=== PATIENT | male | born 1950 | race Caucasian/White ===

== ENCOUNTER → 2017-12-07 | Outpatient (CLI) | payer MEDICARE ==
[~2017-12-07] MED LIST: ASPI1CHW4 CHEW; PARO10TA; SIMV40 PO
[2017-12-07 16:04] LABS: AUTOMATED NEUTROPHIL # 3.5 TH/MM3 (1.8-7.7); BASOPHIL % 0.8 % (0.0-2.0); EOSINOPHIL # 0.1 TH/MM3 (0-0.4); EOSINOPHIL % 2.1 % (0.0-4.0); HEMATOCRIT 34.4 % (39.0-51.0); HEMOGLOBIN 11.9 GM/DL (13.0-17.0); LYMPH % 31.6 % (9.0-44.0); MEAN CELL VOLUME 85.4 FL (80.0-100.0); MEAN CORPUSCULAR HEMOGLOBIN 29.5 PG (27.0-34.0); MEAN CORPUSCULAR HGB CONC 34.6 % (32.0-36.0); MEAN PLATELET VOLUME 7.3 FL (7.0-11.0); MONO % 9.4 % (0.0-8.0); MONOCYTE # 0.6 TH/MM3 (0-0.9); NEUT % 56.1 % (16.0-70.0); PLATELET COUNT 286 TH/MM3 (150-450); RED BLOOD COUNT 4.02 MIL/MM3 (4.50-5.90); RED CELL DISTRIBUTION WIDTH 13.5 % (11.6-17.2); WHITE BLOOD COUNT 6.2 TH/MM3 (4.0-11.0)
[2017-12-07 16:27] LABS: ALBUMIN 3.4 GM/DL (3.4-5.0); AST (GOT) 24 U/L (15-37); BICARBONATE 25.7 MEQ/L (21.0-32.0); BLOOD UREA NITROGEN 16 MG/DL (7-18); CALCIUM 8.2 MG/DL (8.5-10.1); CHLORIDE 106 MEQ/L (98-107); CHOLESTEROL 191 MG/DL (120-200); CREATININE 0.71 MG/DL (0.60-1.30); GLOMERULAR FILTRATION RATE 110 ML/MIN (>89); GLUCOSE,FASTING 80 MG/DL (74-99); SODIUM (NA) 140 MEQ/L (136-145)
[2017-12-07 16:28] LABS: ALKALINE PHOSPHATASE 87 U/L (45-117); ALT (GPT) 23 U/L (12-78); CHOLESTEROL/ HDL RATIO 3.76 RATIO; HDL CHOLESTEROL 50.7 MG/DL (40.0-60.0); LDL CHOLESTEROL 105 MG/DL (0-99); TOTAL BILIRUBIN ADULT 0.9 MG/DL (0.2-1.0); TOTAL PROTEIN 7.9 GM/DL (6.4-8.2); TRIGLYCERIDES 178 MG/DL (42-150)
== END ==
LOC: PLAB 11:51
PROVIDERS: ATTEND Family Medicine
DX: E78.5 Hyperlipidemia, unspecified (principal); Z13.29 Encounter for screening for other suspected endocrine disorder
CPT/HCPCS: 36415; 80053; 80061; 84443; 85025

== ENCOUNTER 2018-01-30 10:39 | Emergency (ER) | payer MEDICARE ==
[~2018-01-30] VITALS: Ht 175.3 cm; Wt 104.0 kg
[2018-01-30 10:41] VITALS: BP 140/76; PULSE 74; RESP 18; TEMP 99.4; O2SAT 99
--- NOTE | 2018-01-30 11:07 | PD ---
HPI Chief Complaint: General Weakness Time Seen by Provider: 10:50 Travel History International Travel<30 days: No Contact w/Intl Traveler<30days: No Traveled to known affect area: No History of Present Illness HPI This 67-year-old male is complaining of generalized weakness and fatigue. Says he has had these symptoms for about a month. He gets short of breath with minimal exertion. He gets exhausted very easily. He has a history of hepatitis B and says that he felt like this at that time. He has had 2 angioplasties in the past. He has not had any recent chest pain. 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 He is on a statin. He has not been having any pain. He has some indigestion and his primary care doctor is trying to get him to see a GI doctor PFS Past Medical History Hx Anticoagulant Therapy: Yes (ASA) Arthritis: No Asthma: No Anxiety: Yes Heart Rhythm Problems: Yes Cardiac Catheterization: Yes (STENTS X2) Cardiovascular Problems: Yes (CAD, STENT) High Cholesterol: Yes Chest Pain: Yes Congestive Heart Failure: No COPD: No Cerebrovascular Accident: No Coronary Artery Disease: Yes Diminished Hearing: No Gastrointestinal Disorders: Yes GERD: Yes Genitourinary: No Headaches: No Hepatitis: Yes (B) Hiatal Hernia: No Hypertension: Yes Kidney Stones: No Musculoskeletal: Yes Neurologic: Yes Reproductive: No Respiratory: Yes Migraines: No Myocardial Infarction: No Renal Failure: No Seizures: No Sleep Apnea: No Ulcer: No Past Surgical History Abdominal Surgery: No Appendectomy: No Cardiac Surgery: Yes (ANGIOPLASTY X TWO) Cholecystectomy: No Ear Surgery: No Endocrine Surgery: No Eye Surgery: No Genitourinary Surgery: No Gynecologic Surgery: No Oral Surgery: No Thoracic Surgery: No Other Surgery: Yes Social History Alcohol Use: No Tobacco Use: No Substance Use: No Allergies-Medications (Allergen,Severity, Reaction): Coded Allergies: No Known Allergies (Verified Adverse Reaction, Unknown, 01/30/18) Reported Meds & Prescriptions Reported Meds & Active Scripts Active Reported Aspirin 81 Mg Chew 162 Mg CHEW DAILY Simvastatin 20 Mg Tab 20 Mg PO HS Paxil (Paroxetine HCl) 10 Mg Tab 20 Mg PO HS Review of Systems General / Constitutional: No: Fever, Chills Eyes: No: Diploplia, Blurred Vision HENT: No: Headaches, Vertigo Cardiovascular: No: Chest Pain or Discomfort, Palpitations Respiratory: Positive: Shortness of Breath, No: Cough Gastrointestinal: No: Nausea, Vomiting Genitourinary: No: Urgency, Frequency Musculoskeletal: No: Myalgias Skin: No Rash, No Itching Endocrine: No: Heat Intolerance Hematologic/Lymphatic: No: Easy Bruising Physical Exam Narrative GENERAL: Well-developed male SKIN: Focused skin assessment warm/dry. HEAD: Atraumatic. Normocephalic. EYES: Pupils equal and round. No scleral icterus. No injection or drainage. ENT: No nasal bleeding or discharge. Mucous membranes pink and moist. NECK: Trachea midline. No JVD. CARDIOVASCULAR: Regular rate and rhythm. No murmur appreciated. RESPIRATORY: No accessory muscle use. Clear to auscultation. Breath sounds equal bilaterally. GASTROINTESTINAL: Abdomen soft, non-tender, nondistended. Hepatic and splenic margins not palpable. On rectal exam there are no masses. Stool is brown but guaiac positive MUSCULOSKELETAL: No obvious deformities. No clubbing. No cyanosis. No edema. NEUROLOGICAL: Awake and alert. No obvious cranial nerve deficits. Motor grossly within normal limits. Normal speech. PSYCHIATRIC: Appropriate mood and affect; insight and judgment normal. Data Data Last Documented VS Vital Signs Date Time Temp Pulse Resp B/P (MAP) Pulse Ox O2 Delivery O2 Flow Rate FiO2 01/30/18 12:00 60 16 145/73 (97) 97 Room Air 01/30/18 10:41 99.4 Orders Orders Electrocardiogram (01/30/18 11:03) Complete Blood Count With Diff (01/30/18 11:03) Comprehensive Metabolic Panel (01/30/18 11:03) Creatine Kinase (Cpk) (01/30/18 11:03) Troponin I (01/30/18 11:03) B-Type Natriuretic Peptide (01/30/18 11:03) Magnesium (Mg) (01/30/18 11:03) Thyroid Stimulating Hormone (01/30/18 11:03) Chest, Single Ap (01/30/18 11:03) Labs Laboratory Tests Test 01/30/18 11:30 White Blood Count 6.1 TH/MM3 Red Blood Count 3.91 MIL/MM3 Hemoglobin 9.8 GM/DL Hematocrit 30.5 % Mean Corpuscular Volume 78.0 FL Mean Corpuscular Hemoglobin 25.0 PG Mean Corpuscular Hemoglobin Concent 32.0 % Red Cell Distribution Width 13.5 % Platelet Count 343 TH/MM3 Mean Platelet Volume 7.0 FL Neutrophils (%) (Auto) 57.9 % Lymphocytes (%) (Auto) 29.0 % Monocytes (%) (Auto) 11.0 % Eosinophils (%) (Auto) 1.6 % Basophils (%) (Auto) 0.5 % Neutrophils # (Auto) 3.5 TH/MM3 Lymphocytes # (Auto) 1.8 TH/MM3 Monocytes # (Auto) 0.7 TH/MM3 Eosinophils # (Auto) 0.1 TH/MM3 Basophils # (Auto) 0.0 TH/MM3 CBC Comment AUTO DIFF Blood Urea Nitrogen 19 MG/DL Creatinine 0.66 MG/DL Random Glucose 92 MG/DL Total Protein 7.4 GM/DL Albumin 3.3 GM/DL Calcium Level 8.2 MG/DL Magnesium Level 2.1 MG/DL Alkaline Phosphatase 77 U/L Aspartate Amino Transf (AST/SGOT) 12 U/L Alanine Aminotransferase (ALT/SGPT) 15 U/L Total Bilirubin 0.4 MG/DL Sodium Level 138 MEQ/L Potassium Level 3.9 MEQ/L Chloride Level 106 MEQ/L Carbon Dioxide Level 24.9 MEQ/L Anion Gap 7 MEQ/L Estimat Glomerular Filtration Rate 120 ML/MIN Total Creatine Kinase 67 U/L Troponin I LESS THAN 0.02 NG/ML B-Type Natriuretic Peptide 9 PG/ML Thyroid Stimulating Hormone 3rd Gen 1.500 uIU/ML MDM Medical Decision Making Medical Screen Exam Complete: Yes Emergency Medical Condition: Yes Medical Record Reviewed: Yes Differential Diagnosis Differential includes liver disease, anemia Narrative Course Hemoglobin today is 9.8. It was 11.9 a few months ago. I suspect his symptoms may be related to his anemia. He does have hypochromic microcytic indices in the stool was positive for blood. His symptoms have been going on for about a month so this does not appear to be an active bleed but certainly needs evaluation. His primary care doctor has been trying to arrange a appointment with GI and I have stressed the importance of this. I will start him on iron. I have also cautioned him that if his symptoms change she should return for reevaluation Diagnosis Primary Impression: Iron deficiency anemia Scripts Ferrous Sulfate (Ferrous Sulfate) 325 Mg (65 Mg Iron) Tablet 325 MG PO BIDPC for Nutritional Supplement, #60 TAB 0 Refills Prov: Kris Taylor MD 01/30/18 Disposition: 01 DISCHARGE HOME Condition: Stable Kris Taylor MD Jan 30, 2018 11:07
--- NOTE | 2018-01-30 11:30 | RADRPT ---
EXAM DATE/TIME: 01/30/2018 11:17 [facility] COMPARISON: No previous studies available for comparison. INDICATIONS : Short of breath MEDICAL HISTORY : Hypertension. Hepatitis B. Gastroesophageal reflux disease. SURGICAL HISTORY : Cardiac stent, Angioplasty ENCOUNTER: Initial ACUITY: 1 day PAIN SCORE: 2/10 LOCATION: Bilateral chest FINDINGS: The heart is normal in size. The mediastinal contours are within normal limits. There mild chronic ap pearing interstitial changes within the pulmonary parenchyma. There is some opacification of the left lung base. This appears to be overlying soft tissue along the chest wall. The osseous structures are grossly intact. CONCLUSION: 1. COPD changes. No acute cardiopulmonary findings. Derick Galicia MD on January 30, 2018 at 11:27 Board Certified Radiologist. This report was verified electronically.
[2018-01-30 11:52] LABS: AUTOMATED NEUTROPHIL # 3.5 TH/MM3 (1.8-7.7); BASOPHIL % 0.5 % (0.0-2.0); EOSINOPHIL # 0.1 TH/MM3 (0-0.4); EOSINOPHIL % 1.6 % (0.0-4.0); HEMATOCRIT 30.5 % (39.0-51.0); HEMOGLOBIN 9.8 GM/DL (13.0-17.0); LYMPHOCYTE # 1.8 TH/MM3 (1.0-4.8); MONOCYTE # 0.7 TH/MM3 (0-0.9); NEUT % 57.9 % (16.0-70.0); PLATELET COUNT 343 TH/MM3 (150-450); RED BLOOD COUNT 3.91 MIL/MM3 (4.50-5.90); RED CELL DISTRIBUTION WIDTH 13.5 % (11.6-17.2); WHITE BLOOD COUNT 6.1 TH/MM3 (4.0-11.0)
[2018-01-30 12:00] VITALS: BP 145/73; PULSE 60; RESP 16; O2SAT 97
[2018-01-30 12:01] LABS: CHLORIDE 106 MEQ/L (98-107); SODIUM (NA) 138 MEQ/L (136-145)
[2018-01-30 12:04] LABS: CALCIUM 8.2 MG/DL (8.5-10.1)
[2018-01-30 12:05] LABS: ALBUMIN 3.3 GM/DL (3.4-5.0); BICARBONATE 24.9 MEQ/L (21.0-32.0); BLOOD UREA NITROGEN 19 MG/DL (7-18); GLUCOSE,RANDOM 92 MG/DL (74-106); MAGNESIUM 2.1 MG/DL (1.5-2.5)
[2018-01-30] MEDS ORDERED: SIMV20TA PO (12:06)
[2018-01-30] MEDS ORDERED: PAXI10TA8 PO (12:06)
[2018-01-30] MEDS ORDERED: ASPI-516 CHEW (12:06)
[2018-01-30 12:08] LABS: ALT (GPT) 15 U/L (12-78); AST (GOT) 12 U/L (15-37); CREATININE 0.66 MG/DL (0.60-1.30); GLOMERULAR FILTRATION RATE 120 ML/MIN (>89)
[2018-01-30 12:09] LABS: TOTAL BILIRUBIN ADULT 0.4 MG/DL (0.2-1.0); TOTAL PROTEIN 7.4 GM/DL (6.4-8.2)
[2018-01-30 12:11] LABS: ALKALINE PHOSPHATASE 77 U/L (45-117)
[2018-01-30 12:13] LABS: TROPONIN I LESS THAN 0.02 NG/ML (0.02-0.05)
[2018-01-30] MEDS ORDERED: FERR325T18 PO (12:57)
[2018-01-30 13:20] VITALS: BP 122/75
--- NOTE | 2018-01-30 21:24 | EKG ---
Date Performed: 01/30/2018 Time Performed: 11:09:34 PTAGE: 67 years EKG: Sinus rhythm Since previous tracing, no significant change noted NORMAL ECG PREVIOUS TRACING : 06/27/2010 13.03 DOCTOR: Elaina Posey Interpretating Date/Time 01/30/2018 21:22:45
== END 2018-01-30 13:41 | disposition home or self-care (01) ==
LOC: PHED 10:39
DX: D50.9 Iron deficiency anemia, unspecified (principal); E78.00 Pure hypercholesterolemia, unspecified; R06.02 Shortness of breath; Z79.899 Other long term (current) drug therapy
CPT/HCPCS: 71045; 80053; 82550; 83735; 83880; 84443; 84484; 85025; 93005; 99285